=== PATIENT | female | born 1955 | race Caucasian/White ===

== ENCOUNTER → 2020-10-11 12:34 | Outpatient (CLI) | payer BC, SELFPAY ==
--- NOTE | 2020-10-11 | DI.RAD.S_ITS ---
PROCEDURE: FL KNEE INJECTION MR/CT RT INDICATIONS: INTERNAL DERANGEMENT OF RIGHT KNEE COMPARISON: None. TECHNIQUE: The indications, alternatives, benefits, risks, and complications of the procedure were explained to the patient. Written informed consent was obtained and placed in the chart. The knee was examined fluoroscopically, and a site chosen for knee joint injection. The skin was prepped and draped in a sterile fashion, and 1% Lidocaine infiltrated from the skin down to the articular surface. A hypodermic needle was then introduced into the joint and iodinated contrast media was instilled to confirm the intra-articular needle tip placement. This was followed by approximately 50 mL dilute solution of a gadolinium containing MR contrast agent. The needle was removed and a bandage was applied. An Satnam wrap was then applied around the knee joint to keep the contrast from collecting in the suprapatellar recess. The patient experienced no complications throughout the procedure and left the fluoroscopic suite in no apparent distress. FINDINGS: Single fluoroscopic spot image demonstrates intra-articular location to injected iodinated contrast. IMPRESSION: Successful fluoroscopically guided administration of dilute Gadolinium solution into the knee joint for MR arthrogram. Dictated by: Je Ascencio M.D. on 10/11/2020 at 14:08 Approved by: Je Ascencio M.D. on 10/11/2020 at 14:09
--- NOTE | 2020-10-11 | DI.MRI.S_ITS ---
PROCEDURE: MR KNEE RT W CON INDICATIONS: INTERNAL DERANGEMENT OF RIGHT KNEE TECHNIQUE: After the administration of 50 mL of dilute intra-articular Gadolinium contrast, sagittal T1 spin echo with fat saturation and PD fast spin echo with fat saturation, coronal T1 spin echo with and without fat saturation, coronal T2 fast spin echo with fat saturation, axial PD fast spin echo with fat saturation through the knee. COMPARISON: [facility], MR, MR KNEE RIGHT WITHOUT CONTRAST, 04/26/2020, 11:25. FINDINGS: Image quality: Excellent. Menisci: Irregularity of the posterior horn and body of the medial meniscus, probably reflecting ill-defined tear, and the appearance would be unusual for isolated postsurgical effects given the frayed margins. This suggests recurrent or de corina tear. There is near complete extrusion of the body, progressed since the prior study. Lateral meniscus intact. Cruciate ligaments: Anterior cruciate ligament appears intact. Posterior cruciate ligament appears intact. Medial structures: There is medial bowing of the medial collateral ligament, with mild internal signal changes and no complete rupture. There is adjacent soft tissue edema. The appearance could reflect reactive changes to medial compartment pathology, versus low-grade sprain of the MCL. Pes anserinus tendons appear grossly unremarkable. Semimembranosus tendon appears intact. Lateral structures: The lateral collateral ligament intact. Biceps femoris tendon appears intact. Popliteus tendon grossly unremarkable. Iliotibial band appears intact. Anterior structures: Quadriceps tendon intact. Medial and lateral patellofemoral ligaments intact. There is mild patellar tendinopathy. Prepatellar and superficial infrapatellar subcutaneous edema/fluid. Bones and cartilage: No focal marrow contusion or discrete low signal fracture line. Within the medial compartment, areas of near full-thickness and full-thickness loss of the weight-bearing femoral and tibial cartilage. There is extensive subchondral sclerosis and marrow edema. Within the lateral compartment, mild surface fraying of the femoral and tibial articular cartilage without focal defect. Within the patellofemoral compartment, diffuse partial-thickness loss of the patellar and femoral trochlear cartilage. Joint space: No Cuadra's cyst. No specific evidence of intra-articular loose body. IMPRESSION: Medial meniscal (recurrent or de corina) tear involving the posterior horn and body with near complete extrusion. There may be superimposed postsurgical sequela. Recommend correlation to operative history. Adjacent MCL changes as above. Patellar tendinopathy with adjacent fluid and edema, unchanged. Severe degenerative joint disease, most pronounced in the medial compartment where there is full-thickness articular cartilage loss and associated subchondral marrow edema. This has progressed since the prior study. Dictated by: Tripp Isbell M.D. on 10/11/2020 at 14:20 Approved by: Tripp Isbell M.D. on 10/11/2020 at 14:39
== END ==
PROVIDERS: Family Provider Nurse Practitioner; PCP Nurse Practitioner; Referring Provider Orthopaedic Surgery; Visit Provider Orthopaedic Surgery
DX: M23.91 Unspecified internal derangement of right knee (principal); S83.241A Other tear of medial meniscus, current injury, right knee, initial encounter; M17.11 Unilateral primary osteoarthritis, right knee
CPT/HCPCS: 27369; 73722; 77002

== ENCOUNTER → 2020-11-16 14:04 | Outpatient (CLI) | payer BC, SELFPAY ==
[2020-11-16] MEDS: COVID-19 VACC, Ad26(JANSSEN)/PF 0.5 ML IM (14:11)
== END ==
PROVIDERS: Family Provider Nurse Practitioner; PCP Nurse Practitioner; Visit Provider Internal Medicine
DX: Z23 Encounter for immunization (principal)
CPT/HCPCS: 0031A; 91303

== ENCOUNTER → 2022-04-29 11:18 | Outpatient (CLI) | payer BC, SELFPAY ==
[2022-04-29 14:04] LABS: COVID19 -Nasal RAPID Negative (Negative)
== END ==
PROVIDERS: Family Provider Nurse Practitioner; PCP Nurse Practitioner; Referring Provider Orthopaedic Surgery; Visit Provider Orthopaedic Surgery
DX: Z20.822 Contact with and (suspected) exposure to COVID-19 (principal)
CPT/HCPCS: 87635; C9803

== ENCOUNTER 2022-04-30 09:10 | Inpatient (IN) | payer BC, SELFPAY ==
[2022-04-22 10:00] VITALS: BMI 22.9
[2022-04-30] VITALS (15 sets, daily range): BP systolic 90–117; BP diastolic 45–73; PULSE 64–95; RESP 9–18; TEMP 35.9–37.1; O2SAT 93–98; BMI 22.9
--- NOTE | 2022-04-30 | DI.RAD.S_ITS ---
PROCEDURE: XR KNEE RT 1TO2V INDICATIONS: POST OP TKA TECHNIQUE: 2 view(s) of the knee acquired. COMPARISON: None. FINDINGS: Bones: Patient is status post knee joint arthroplasty. Hardware components are in expected positions. Visualized bony structures are intact. Soft tissues: Overlying postoperative changes are noted. IMPRESSION: Expected appearance of right TKA. Dictated by: Vladimir Alvarado M.D. on 04/30/2022 at 14:52 Approved by: Vladimir Alvarado M.D. on 04/30/2022 at 14:52
[2022-04-30] MEDS: ACETAMINOPHEN 325 MG TABLET 975 MG PO (09:47)
[2022-04-30] MEDS: CELECOXIB 200 MG CAPSULE PO (09:47)
[2022-04-30] MEDS: LACTATED RINGERS 1,000 ML 42 ML IV (09:48)
[2022-04-30] MEDS: VANCOMYCIN 1,000 MG/200 ML PIGGYBACK 200 MG IV (10:26)
--- NOTE | 2022-04-30 10:53 | PM.PREOP ---
Pre-operative Note COVID-19 COVID-19 status: Negative Interval Note History & Physical reviewed/Exam performed by Physician: Yes Changes to H&P: No
--- NOTE | 2022-04-30 10:54 | PM.OP.1 ---
Operative Date/Time/Diagnoses Date of procedure: 04/30/22 Time of procedure: 11:30 Pre-op diagnosis: right knee, failed uni Post-op diagnosis: same Procedure & Clinicians Procedure: Revision right knee arthroplasty unicompartment to total knee arthroplasty Same procedure as scheduled: Yes Indications: The patient has had progressively worsening right knee pain with radiographic changes consistent with arthritis in the patellofemoral and lateral compartment. She has a history of prior unicompartment arthroplasty without obvious loosening. Non-operative management has failed and the patient has requested total knee replacement. The risks, benefits and alternatives to surgery were discussed with the patient prior to proceeding. Risks discussed included, but were not limited to, failure to relieve pain, stiffness, infection, nerve damage, deep venous thrombosis, pulmonary embolism, stroke, coma, heart attack, permanent paralysis and , as well as the potential need for eventual revision of the prosthetic. Surgeon: Miladis Alcantar [place] Maintenance Manager: Aníbal Asencio Anesthesia Type: Spinal and Peripheral nerve block Operative Notes Findings: Some medial laxity, no significant polyethylene wear, no femoral loosening, mild tibial loosening Closure Type: primary Specimen(s): none sent Prosthetic devices, grafts, tissues, transplants, or devices: Alcantar [employer] Nephew Journey BCS 2 size 4 right femur, size 35 patella, size 3 legion tibia with a 10 x 120 cemented stem, 5 mm medial medial augment, size 9 poly Applied: drain(s) Estimated Blood Loss (mL): 250 Blood products transfused: none Tourniquet time (min): 94 Procedure in detail: The patient was seen in the pre-operative area, where the patient identified the right knee as the operative site and this was marked with my initials. The patient received pre-operative antibiotics, and was taken to the operating room and placed on the operative table in the supine position. After satisfactory anesthesia, a multimedia engineer out was performed. The right leg was encircled with a tourniquet about the proximal thigh, and the leg was prepared from the toes to the tourniquet with ChloroPrep in the usual fashion and draped through sterile drapes. The leg was elevated and exsanguinated with Eschmark bandage and the tourniquet inflated to [250] mmHg pressure. The knee was approached through an approximately 18 cm incision centered over the patella and carried into the knee through a medial parapatellar arthrotomy. A stripped a portion along the medial proximal tibia. I removed the polyethylene from the unicompartment. Also used a small saw to start initially loosening the tibia. Soft tissue was carefully mobilized around the patella the patella was measured with a caliper. Bone was resected from the patella and the patellar height was reconstituted with up an appropriate sized patellar component. A cover was then placed on the patella. A small amount of additional lateral meniscus was resected. The distal femur was cut at 5?. A [+2] cut was used. The distal lateral femoral cut was initially made an I also made a starting cut around the femoral component. The femoral component was then meticulously loosen from the underlying bone. I used a TPS to remove the component with minimal bone loss. It looked like an appropriate distal femoral cut and the cut was made without difficulty. The tibial component was then meticulously mobilized and removed. There was no significant bone loss from the proximal medial tibia. There was a small amount of tibial loosening. The tibial cut appeared quite deep. I placed a stylus or Brianna wing along the proximal medial tibia and then cut on top of the guide. An inter medullary guide was placed. Approximately 13 mm was resected off the least affected side. There was still at 3-4 mm gap on the medial side. It did none not look like we should resect additional tibia. The canal was reamed up to a 12. I cannot adequately advance in order to well seated a 12. It looked like I would use a offset tibia and she had kind of a small metaphysis and it was opted to proceed with a cemented stem. The tibia was prepared. The rotation was assessed. The patient was placed in extension residual medial and lateral meniscus as well as any residual bone was carefully resected. Hemostasis was achieved especially posteriorly. The current tourniquet was deflated at 1hour. Additional local was injected into the posterior capsule. The extension gap was assessed and additional releases for gap balancing were performed as necessary. The rotation was accessed in flexion. I used a supplemental wedge in the deficient posterior medial femoral condyle and then set the component in about 3? of external rotation. Finishing cuts were made for a size 4 femoral component. The femoral component trial was placed and the notch was finished. There was no evidence of notching. The posterior osteophytes and soft tissues were then removed. The posterior capsule was injected with part of a mixture of 60 ml 0.25% Marcaine mixed with 20 ml Exparel for post operative pain control. The remainder of this mixture was injected into the capsule and subcutaneous tissues during cement curing. The tibial and femoral components were then placed and the knee placed through a range of motion. Range of motion was [0-130], with good stability throughout the range. The trials were then removed, and the tibia was finished. Rotation was assessed on the tibia and it was punched. There was about a 3-4 mm gap on the medial aspect of the tibia and it was opted to do a 5 mm augment on the medial side. A saw was used to remove the bone. The bone was prepared with pulsatile lavage, and dried with a sponge. Cement was applied and the final prosthetics placed. Excess cement was removed during and after cement curing. A brief Betadine soak was performed. After confirming there was no extruded cement posteriorly, the final tibial insert was placed. The knee was copiously irrigated and the tourniquet deflated. Hemostasis was obtained with the [Bovie cautery]. A drain was placed and brought out superolaterally. The capsule was closed with interrupted nonabsorbable suture. The subcutaneous layer was closed with barbed sutures, and the skin with a running 3-0 V-Lock suture and Surgical glue. An Aquacel Ag dressing was applied and the patient was taken to recovery having tolerated the procedure well. Complications: none Post-operative Condition: stable Disposition: Acute Care Plan for aftercare: The patient will be maintained on a standard total knee replacement protocol with weight bearing as tolerated. The patient will receive aspirin and sequential compression devices for DVT prophylaxis. The patient will be discharged home when safe for the home environment.
--- NOTE | 2022-04-30 11:26 | SUR.PREOP ---
Block start time 1113 . Monitoring initiated and maintained throughout procedure. Oxygen and medications given per anesthesiologist instructions. Patient remained stable throughout procedure, no adverse reactions noted. Block end time 1118.
[2022-04-30] MEDS: CEFAZOLIN 2 GM/100 ML PREMIX 100 ML IV ×2 (11:30→20:18)
--- NOTE | 2022-04-30 11:58 | SUR.OPER ---
Supine on padded OR bed. Pillow under head, arms secured on padded armboards <90 degree abduction. Safety belt across torso. Non-operative leg secured with tape over blanket over lower leg. Operative leg secured in DeMayo/Davonte/Nathe positioner. Foam padded brace at thigh of operative leg.
[2022-04-30] MEDS: TRANEXAMIC ACID 1,000 MG VIAL 2000 MG INJ ×2 (12:11→14:08)
[2022-04-30] MEDS: BUPIVACAINE 0.25% (PF) 60 ML, EPINEPHrine 0.3 MG INJ (12:15)
[2022-04-30] MEDS: BUPIVACAINE LIPOSOME 266 MG/20 ML VIAL INJ (12:15)
[2022-04-30] MEDS: LACTATED RINGERS 1,000 ML 100 ML IV (17:50)
[2022-04-30] MEDS: ACETAMINOPHEN 325 MG TABLET 650 MG PO (17:50)
[2022-04-30] MEDS: ATORVASTATIN 20 MG TABLET PO (17:50)
[2022-04-30] MEDS: IBUPROFEN 400 MG TABLET PO ×2 (17:50→20:17)
[2022-04-30] MEDS: DOCUSATE 100 MG CAPSULE PO (20:18)
[2022-04-30] MEDS: ASPIRIN EC 81 MG TABLET PO (20:18)
[2022-05-01] MEDS: ACETAMINOPHEN 325 MG TABLET 650 MG PO ×2 (00:19→05:18)
[2022-05-01] MEDS: IBUPROFEN 400 MG TABLET PO ×3 (00:19→08:22)
[2022-05-01 01:00] VITALS: BP 113/63; PULSE 70; RESP 18; TEMP 36.2; O2SAT 93
[2022-05-01] MEDS: CEFAZOLIN 2 GM/100 ML PREMIX 100 ML IV (04:29)
[2022-05-01] MEDS: LACTATED RINGERS 1,000 ML 100 ML IV (04:29)
[2022-05-01] MEDS: LEVOTHYROXINE 25 MCG TABLET PO (05:20)
[2022-05-01 06:38] LABS: Hemoglobin 10.8 g/dL (12.0-16.0)
[2022-05-01 08:00] VITALS: BP 101/51; PULSE 68; RESP 16; TEMP 36.4; O2SAT 97
--- NOTE | 2022-05-01 08:08 | P.DS_ITS ---
History of Present Illness History of Present Illness Date Patient Seen: 05/01/22 Time Patient Seen: 08:08 Chief complaint: Knee pain Narrative: Patient's knee pain is mild. Denies fever or chills. No nausea or vomiting. Patient has her home to assist her. Otherwise without complaints this morning. Discharge Providers Provider Date of admission: 04/30/22 09:10 Discharge Date: 05/01/22 Primary care physician: INDIA Sarmiento Consults: 04/30/22 06:00 Consult to Anesthesiology Routine Comment: Consulting Provider: Anesthesiologist Reason for consultation: Regional block for post operative pain control 04/30/22 09:35 Consult to Respiratory Therapy Evaluate & Treat Comment: Physician Instructions: Evaluate and treat 04/30/22 15:34 Consult to Discharge Planning Routine Comment: Consult to Physical Therapy Evaluate & Treat Comment: Physician Instructions: postop TKA protocol Consult to Respiratory Therapy Evaluate & Treat Comment: Physician Instructions: Evaluate and treat Discharge provider: Aníbal Asencio PA-C Summary Hospital Course Discharge Diagnosis: Right knee, failed unicompartment arthroplasty Hospital Course: Revision right knee arthroplasty unicompartment to total knee arthroplasty Same procedure as scheduled: Yes Indications: The patient has had progressively worsening right knee pain with radiographic changes consistent with arthritis in the patellofemoral and lateral compartment.? She has a history of prior unicompartment arthroplasty without ob vious loosening. Non-operative management has failed and the patient has requested total knee replacement. The risks, benefits and alternatives to surgery were discussed with the patient prior to proceeding. Risks discussed included, but were not limited to, failure to relieve pain, stiffness, infec tion, nerve damage, deep venous thrombosis, pulmonary embolism, stroke, coma, heart attack, permanent paralysis and , as well as the potential need for eventual revision of the prosthetic. Surgeon: Miladis Alcantar Metal Cleaner: Aníbal Asencio Anesthesia Type: Spinal and Peripheral nerve block Operative Notes Findings: Some medial laxity, no significant polyethylene wear, no femoral loosening, mild tibial loosening Closure Type: primary Specimen(s): none sent Prosthetic devices, grafts, tissues, transplants, or devices: [employer]hew [employer] BCS 2 size 4 right femur, size 35 patella, size 3 legion tibia with a 10 x 120 cemented stem, 5 mm medial medial augment, size 9 poly Applied: drain(s) Estimated Blood Loss (mL): 250 Blood products transfused: none Tourniquet time (min): 94 Patient admitted to the hospital for revision right knee arthroplasty unicompartment to total knee arthroplasty. Patient consented to the same. Patient underwent surgery on April 30, 2022. Patient back in her room recovering well as in stable condition. Patient will mobilize with physical therapy. Patient has her home to assist her. Patient be discharged home today after physical therapy if safe for home environment. Status at Discharge Cognitive/behavioral status at discharge: at baseline, oriented Functional status at discharge: uses cane/walker Overall status at discharge: patient is progressing back to baseline Exam Vital Signs (past 8 hours): - 05/01/22 01:00 Temperature 97.2 F L Pulse Rate 70 Respiratory Rate 18 Blood Pressure 113/63 Pulse Oximetry 93 Oxygen Flow Rate 0 Oxygen Delivery Method Room Air Oxygen Flow Rate 0 Narrative Exam Narrative: Pleasant 66-year-old female resting comfortably in bed in no apparent distress. Peter dressing is on and functioning. Dressing is clean, dry and intact. Motor functions intact bilateral lower extremities. Sensation grossly intact to light touch bilateral lower extremities. Const General: cooperative and comfortable Orientation: alert HENMT Head: normal to inspection Resp Effort & Inspection: normal respiratory effort and able to speak in complete sentences Objective Labs Result Diagrams: 05/01/22 06:20 Labs: Laboratory Results - last 24 hr 05/01/22 06:20 Hgb 10.8 L Hct 31.0 L PFSH Medical History Anxiety Cervical cancer (1985) COVID-19 virus infection (06/2020) Depression Eczema HLD (hyperlipidemia) Hypothyroid SULTANA (obstructive sleep apnea) Osteoarthritis Surgical History History of bladder surgery (2004) History of orthopedic surgery History of orthopedic surgery Hx of arthroscopy of right knee (~2018) Hx of arthroscopy of right knee (05/2020) S/P right unicompartmental knee replacement (11/28/20) Status post breast reduction Status post hysterectomy (1985) Family History Grandfather Heart disease Social History household members: spouse Smoking Status: Never smoker alcohol intake: current Discharge Assessment & Plan Assessment and Plan Assessment: Patient progressing as expected status post revision right knee arthroplasty in compartment to total knee arthroplasty Plan of Treatment: Mobilize with physical therapy, weight-bearing as tolerated Multimodal pain management Discharge home today in stable condition is safe for home environment. Discharge Plan Discharge Plan Patient Disposition: Home Discharge orders & Medications Prescriptions: New acetaminophen 325 mg Tablet 650 mg PO Q6HR Qty: 60 0RF hydrocodone-acetaminophen 5-325 mg Tablet 2 tab PO Q4HR PRN (Reason: Pain, Moderate (4-6)) Qty: 60 0RF aspirin 81 mg Tablet,Delayed Release (Dr/Ec) 81 mg PO BID Qty: 60 0RF polyethylene glycol 3350 17 gram Powder In Packet 17 gm PO DAILY PRN (Reason: Constipation) Qty: 10 0RF ibuprofen 400 mg Tablet 400 mg PO Q4HR Qty: 60 0RF Continued atorvastatin 20 mg Tablet 20 mg PO QPM levothyroxine 25 mcg Tablet 25 mcg PO DAILY citalopram 20 mg Tablet 20 mg PO DAILY Discontinued aspirin [Aspir-81] 81 mg Tablet,Delayed Release (Dr/Ec) 81 mg PO DAILY acetaminophen 650 mg Tablet Extended Release 650 mg PO Q12H PRN (Reason: Pain) ibuprofen 200 mg Tablet 200 mg PO Q6H PRN (Reason: Pain) Follow up/Referrals: Miladis Alcantar MD [Physician] - (2 weeks) Marina Kaye FNP-BRENDON [Primary Care Provider] - Diet/Activity/Treatments Diet: Diet as Tolerated Activity: Weight-bearing as tolerated Cold/Heat Therapy: Apply ice to knee as needed Skin/Wound/Dressing Care Report to your healthcare provider any signs of infection, such as:: chills, fever, increased pain, unusual drainage and unusual redness Dressing: Refer to dressing instructions, reviewed with patient Visit Report/Discharge Packet Instructions: DI for Heart Failure, DI for Knee Replacement, DI for Prescription Opioid Use Stand Alone Forms: Surgery Discharge Discharge Data Primary Care Provider: Marina Kaye Quality VTE Deep Vein Thrombosis/Pulmonary Embolism Present on Admission: No
[2022-05-01] MEDS: DOCUSATE 100 MG CAPSULE PO (08:22)
[2022-05-01] MEDS: ASPIRIN EC 81 MG TABLET PO (08:22)
[2022-05-01] MEDS: CITALOPRAM 10 MG TABLET 20 MG PO (08:22)
--- NOTE | 2022-05-01 09:36 | CM.DANOTE ---
DCP/Assessment: Reviewed chart. Patient is a 66yr old female admitted to [facility] for right total knee revision. PCP listed is Marina Kaye. Primary payor is 1) out of [facility]. Met with patient this AM explained CM/SW role. Patient reports that she hopes to d/c home today. Patient indicates that she has all needed DME and outpatient therapy arranged at [facility]. 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 It is anticipated that patient will d/c home this AM after seen by therapy. Patient has no identified d/c planning needs. P: Home today. KJS Discharge Planning/Care Management CM Discharge Assessment Start: 05/01/22 09:33 Freq: Status: Active Protocol: Document 05/01/22 09:34 KJS (Rec: 05/01/22 09:36 KJS [id number]) Discharge Planning Assessment Assigned Case Operator ELENA Rodríguez Contact Information Deep Diaz (spouse) # Advance Directives? Yes Advance Directives on File No History Provided By Patient,Medical Record Prior Living Arrangements House Household Members spouse Type of transporation used prior to Drives own vehicle admit Independent with ADL's Yes Is patient alert and oriented? Yes Caregiver for Another No DME Already Rented / Owned FWW / Walker,Cane,Crutches Comment Patient reports that she has all needed DME. Patient underwent right TKR in November ( 2020) Patient/Family Preference OP PT Therapy Barriers to Discharge No Discharge Plan Home Transportation Arrangement Family to provide transport. Referrals Initiated None needed Whiteboard Updated in Patient Room with Yes name and ext. # of Case Operator Review Status In Process Next Review Type Continued Stay Review Pre-Anesthesia Assessment Start: 04/22/22 10:00 Freq: Status: Active Protocol: Document 04/22/22 10:00 CAB (Rec: 04/22/22 10:28 CAB [id number]) Pre-Anesthesia Assessment Preferred Name Conchita Patient Information Reviewed Via Phone Assessment Assessment Completed With Patient Comment Labs/ECG done per pt, not here , COVID screen 04/29/22 Primary Care Provider Marina Kaye Seen Specialist in Last 12 Months Yes Specialist Seen Orthopedist Primary Language Greenlandic General Manager Food Required No Height 165.1 cm Weight 62.596 kg Body Mass Index (BMI) 22.9 Hearing Ability Normal Visual Impairment No Limitations Visual Assist None Dentition Type Teeth, Natural Present Barriers to Learning None Hx Anesthesia Reactions No Hx Family Anesthesia Reaction No Hx Malignant Hyperthermia No Hx Blood Transfusions No Anesthesia Review Requested No Tugboat Mate No alcohol intake current alcohol intake frequency 0-2 drinks per day Smoking Status Never smoker Substance Use Type does not use Pain Present Pain Reported Musculoskeletal Symptoms Abnormal Gait,Back Pain, Difficulty Walking,Joint Pain, Neck Pain History of Falling (Recent or History of Yes ) Patient is completely paralyzed or No completely immobile Mental Status Oriented to own ability Is patient on oxygen? No Does patient have MCKEON/SOB No Hx Sleep Apnea Yes: Pt states mild, did not tolerate CPAP CPAP/BIPAP use prescribed not used Currently Taking a Beta Jose No Can You Climb a Flight of Stairs Without Yes SOB Hx Chest Pain No Hx SOB No Hx Syncope or Dizziness No Anti-Coagulant Therapy No Has a Manager Treasury No Cardiac Testing No Hx Pacemaker/ICD No Pacemaker Rep Required? No Cardiac Clearance Received Not Applicable Diet Type At Home Regular dysphagia No Urinary Catheter Present No Hx Urinary Self Catheterization No Diabetes No Patient No Lactating No Hx Drug Resistant Organism No Presence of External or Internal Medical Yes: Partial right knee, Devices bladder sling Have you had any close contact with No someone diagnosed with COVID-19? Received a COVID vaccine? Yes Received all doses? Yes Marital Status Lives With spouse Prior Living Arrangements House Number of Floors (Floors) 3 or More Floors Support System Spouse Does the Patient Have Assistance After Yes Surgery Patient Discharge Plan Description Return Home Comment Pt not advised on length of stay per surgeon Feels Safe in Current Environment Yes Been Physically Hurt or Threatened By a No Person in Current Environment Do you have thoughts of harming yourself None or others? Are you currently considering suicide? No Do you have a plan to hurt yourself or No Plan others? Do You Have Any Spiritual Beliefs That No May Affect Your HC Choices? Do You Have Any Cultural Practices That No May Affect Your HC Choices? Who Can We Speak to About Patient's Care Family, friends Identifying Code for Release of Patient Declines to issue Information Health Care Proxy/Next of Kin Deep () Jose (son) Health Care Proxy Phone Number Deep: [phone] Justiin: [phone] Emergency Contact Name Deep () Jose (son) Emergency Contact Phone Number Deep: Justiin: [phone] Advance Directives? Yes Advance Directives on File No Requested Patient Bring Advanced Yes Directives DOS Power of Leaflet Distributor Yes Power of Leaflet Distributor Name Deep () Power of Leaflet Distributor PAC Instructions Do not shave/clip surgical site,Durable medical equipment ,Medications to take/avoid, Nasal antibiotic,No ETOH/ petroleum product on skin DOS, NPO,Pre-surgical wash,Sturdy shoes/comfortable clothes,Do not bring valuables and remove jewelry
--- NOTE | 2022-05-01 09:40 | PT.IIE ---
Current Diagnoses Mechanical loosening of other internal prosthetic joint, sequela (04/30/22) Presence of right artificial knee joint (04/30/22) Surgery Performed Operation Date: 04/30/22 11:15 Actual Procedures p Total Knee Arthroplasty Revision(Right) - Miladis Alcantar MD Surgical History (Last Reviewed 05/01/22 @ 08:10 by Aníbal Asencio PA-C) History of bladder surgery (2004) History of orthopedic surgery History of orthopedic surgery Hx of arthroscopy of right knee () Hx of arthroscopy of right knee (05/2020) S/P right unicompartmental knee replacement (11/28/20) Status post breast reduction Status post hysterectomy (1985) Medical History (Last Reviewed 05/01/22 @ 08:10 by Aníbal Asencio PA-C) Anxiety Cervical cancer (1985) COVID-19 virus infection (06/2020) Depression Eczema HLD (hyperlipidemia) Hypothyroid SULTANA (obstructive sleep apnea) Osteoarthritis Physical Therapy Inpatient Evaluation/Re-Eval M1 PT/OT-IP Prior Functional Status Start: 05/01/22 11:33 Freq: NEEDED Status: Active Protocol: Document 05/01/22 09:40 AB (Rec: 05/01/22 11:48 AB [id number]) Medical Review Prior Functional Status Medical History Reviewed Yes Communication able to make needs known Mobility and Gait pt stated that she is modified independent with all mobilities and ambulation without AD but uses hiking poles for long distance outdoor ambulation due to knee pain Social History Household Members spouse Living Arrangements House Number of Floors (Floors) 3 or More Floors Number of Stairs To Enter/Railing? 10 steps L rail ascending to enter the house 15 steps with L rail ascending to get to 2nd level of the house Home Environment Tub/Shower Home Equipment Front Wheel Walker,Bedside Commode,Shower Seat without Backrest,Hand Held Shower,Grab Bars In Shower Employment Status Retired M2 PT-IP Current Condition Start: 05/01/22 11:33 Freq: NEEDED Status: Active Protocol: Document 05/01/22 09:40 AB (Rec: 05/01/22 11:48 AB [id number]) Physical Therapy Current Condition Current Condition Evaluation Date 05/01/22 Treatment Diagnosis s/p R TKA revision; difficulty in walking Onset Date 09/20/22 M3 PT-IP Subjective Start: 05/01/22 11:33 Freq: NEEDED Status: Active Protocol: Document 05/01/22 09:40 AB (Rec: 05/01/22 11:48 AB [id number]) Subjective Physical Therapy Visit Type Type Initial Evaluation Visit Start Time 09:40 Visit Stop Time 10:25 Total Visit Minutes 45 Number of OUTSOLE CEMENTER MACHINE Visits 0 Physical Therapy Visit Comments Patient Comments agreeable to do PT Therapy Pain Assessment Pain When Pain Assessed At Rest Pain Present Pain Present Pain Reported Location Right Knee Intensity 2 Scale Used Numeric (0 - 10) Pain Management Techniques Distraction,Modification of Treatment,Re-positioning, Timing of Activity with Medications M4 PT-IP Mobility and Gait Start: 05/01/22 11:33 Freq: NEEDED Status: Active Protocol: Document 05/01/22 09:40 AB (Rec: 05/01/22 11:48 AB [id number]) PT-Bed Mobility Assessment Supine to Sit Supine to Sit Standby Assistance Sit to Supine Sit to Supine Standby Assistance PT-Transfer Assessment Sit to and From Stand Sit to and from Stand Standby Assistance,1 Person Assistance,Use of Upper Extremities Equipment Transfer Assistive Device Gait Belt,Front Wheeled Walker Orthotic/Prosthetic Devices or Brace: No Transfers Transfer Destination Chair,Toilet Transfer Technique ambulated Transfer Ability Level of Assist Standby Assistance Comments Mobility Comments pt completed supine to sit SBA . able to sit on EOB SBA. no c/o dizziness/lightheadness. completed sit to stand SBA and ambulated to the chair using FWW SBA. pt educated on stair climbing techniques. pt requested to use the toilet. completed sit to stand from the chair SBA and ambulated to the toilet using FWW SBA. able to complete toileting needs SBA. ambulated towards the sink using FWW SBA and able to maintain standing using FWW for support while completing grooming and handwashing. pt ambulated out in to the hallway using FWW SBA ~150 ft. completed up/down steps x 3 sets using L rail ascending SBA to occasional CGA and initial cues provided for techniques but able to complete afterwards without cues. pt ambulated back to her room using FWW SBA ~ 150 ft SBA. sat on chair. positioned on chair and with call light and table placed within reach. informed nurse, NAC that pt is awaiting d/c. Gait Assessment Gait Gait Assistance Required: Standby Assistance Distance (Feet) 150 Able to Maintain Weight Bearing Status Yes During Gait Assistive Devices Assistive Device Gait Belt,Front Wheeled Walker Orthotic/Prosthetic Devices or Brace: No Gait Deviations General Gait Pattern Antalgic,Decreased Stride Length,Decreased Feet Clearance Factors Limiting Gait Function Factors Limiting Gait Function Decreased Activity Tolerance, Decreased Strength,Limited Range of Motion,Pain,Poor Balance Stair Climbing Assessment Evaluation Level of Assist On Stairs Standby Assistance,Contact Guard Assistance Devices Stair Climbing Assistive Devices Left Railing Technique/Endurance Stair Climbing Direction Ascend and Descend Stair Climbing Technique Step to Step Number of Steps Climbed 3 Query Text: Stair Climbing Set # Repetitions (reps) 3 PT-Balance Assessment Sitting Balance and Reactions Static Sitting Balance Ability Normal Dynamic Sitting Balance Ability Normal Standing Balance and Reactions Static Standing Balance Ability Good Dynamic Standing Balance Ability Fair Device Used FWW M5 PT-IP Objective Assessments Start: 05/01/22 11:33 Freq: NEEDED Status: Active Protocol: Document 05/01/22 09:40 AB (Rec: 05/01/22 11:48 [email or web address] Orientation Orientation/Cognition Level of Alertness Alert Orientation Name,Place,Situation Language Function Ability No Deficits Noted Safety Awareness Decreased Safety Awareness Memory Description No Deficits Noted Gross Range of Motion Lower Extremity ROM Assessment Right Impaired Impairments R knee flexion ~ 90 deg Strength Lower Extremity Strength Assessment Right Impaired Hip 4/5 Knee 4-/5 Coordination Assessment Gross Coordination Gross Coordination WNL Sensation Assessment Sensation Gross Sensation WNL Muscle Tone Muscle Tone WNL Yes M6 PT-IP Treatment Start: 05/01/22 11:33 Freq: NEEDED Status: Active Protocol: Document 05/01/22 09:40 AB (Rec: 05/01/22 11:48 AB [id number]) Physical Therapy Treatment Education Education Provided Precautions,Weight Bearing Status,Post-Op Packet,Safety M7 PT-IP Assessment and Plan Start: 05/01/22 11:33 Freq: NEEDED Status: Active Protocol: Document 05/01/22 09:40 AB (Rec: 05/01/22 11:48 AB [email or web address]) PT Summary Assessment and Plan Potential Rehabilitation Potential Good Status of Condition at Evaluation Stable Summary Impairments Pain,ROM,Strength,Balance, Coordination,Sensation,Tone, Cognition,Bed Mobility, Transfers,Gait,Activity Tolerance Assessment Summary pt requiring SBA to occasionaly CGA with mobility using FWW and plans to go home with spouse to assist her. pt has outpt PT scheduled. pt may go home when medically stable. Goals Bed Mobility Goal Independent Transfer Goal Independent,Front Wheeled Walker Gait Goal Independent,Front Wheel Walker Gait Distance 200 Other Goals up/down 15 steps L rail ascending mod I Days to Meet Goals 3 Frequency of Treatment Frequency Of Treatment Twice a Day Treatment Plan Physical Therapy Treatment Plan Bed Mobility Training,Transfer Training,Gait Training, Therapeutic Exercise,Balance Retraining,Post Op Education, Discharge Planning,Hot or Cold Pack,Neuromuscular Re-ed, Coordination Retraining,Manual Therapy Weight Bearing Status Weight Bearing Status Weight Bear as Tolerated Allowed Weight Bearing Amount (enter % RLe WBAT or #) (%) Recommendations To Nursing Amount of Assist Needed Standby Assistance Discharge Recommendations PT Discharge Recommendations Home with Assistance, Outpatient PT Transportation Needs at Discharge Private Vehicle
[2022-05-01] MEDS: HYDROCODONE/ACET 5/325 TABLET 2 TAB PO (12:01)
--- NOTE | 2022-05-01 12:51 | PC.NURSE ---
Day Shift Pt had right knee surgery, pulled out the hemovac and removed drain tip intach, applied new dressing over drain sight, Peter dressing was still intact and green light was functioning WNL.
--- NOTE | 2022-05-01 12:57 | PC.NURSE ---
Day Shift Pt tolerated PT and passed, IV removed, all personal possessions given to Pt and spouse, Pt received all paperwork / signed, answered all questions. Pt voided, diet tolerated and pain medication well controlled per OCT. Pt Left floor at 1258 via WC with spouse to Personal vehicle.
[2022-05-21 13:26] LABS: Bacteria Det by PCR Univ WA NONE DETECTED
== END 2022-05-01 13:05 | disposition home or self-care (01) | DRG 468 ==
PROVIDERS: Admitting Provider Orthopaedic Surgery; Family Provider Nurse Practitioner; PCP Registered Nurse General Practice; Referring Provider Orthopaedic Surgery; Visit Provider Orthopaedic Surgery
PROC: 0SRC0J9 Replacement of Right Knee Joint with Synthetic Substitute, Cemented, Open Approach (ICD-10-PCS; principal; 2022-04-30 11:15)
DX: T84.032A Mechanical loosening of internal right knee prosthetic joint, initial encounter (principal); E78.5 Hyperlipidemia, unspecified; E03.9 Hypothyroidism, unspecified; F32.A Depression, unspecified; Z20.822 Contact with and (suspected) exposure to COVID-19; Z96.651 Presence of right artificial knee joint
CPT/HCPCS: 36415; 64450; 73560; 85014; 85018; 87070; 87075; 87176; 87205; 87801; 97116; 97161; C1776; C1713; C9290; J0171; J0690; J1100; J2250; J2704; J3010